=== PATIENT | female | born 1935 | race Caucasian/White ===

== ENCOUNTER 2022-11-11 11:09 | Outpatient (REF) | payer MEDICARE, SELFPAY ==
[2022-11-11 12:48] LABS: Alanine Aminotransferase 19 U/L (0-31); Albumin Level 4.2 g/dL (3.5-5.0); Alkaline Phosphatase 76 U/L (39-117); Aspartate Amino Transferase 20 U/L (5-31); Bilirubin Direct < 0.2 mg/dL (0.0-0.5); Bilirubin Total 0.4 mg/dL (0.0-1.0); Cholesterol 151 mg/dL; Glucose Fasting 188 mg/dL (60-99); HDL Cholesterol 35 mg/dL; LDL Cholesterol Calculated 80 mg/dl; Triglycerides 183 mg/dL
[2022-11-11 13:59] LABS: Estimated Average Glucose 200 mg/dL; Hemoglobin A1c % 8.6 %
[2022-11-11 14:37] LABS: Reflex LDLD? No
== END 2022-11-11 11:10 | disposition home or self-care (01) ==
LOC: HO.LNP 11:09
PROVIDERS: Visit Provider Internal Medicine
DX: E11.9 Type 2 diabetes mellitus without complications (principal); E78.00 Pure hypercholesterolemia, unspecified
CPT/HCPCS: 80061; 80076; 82947; 83036

== ENCOUNTER → 2023-01-16 15:30 | Outpatient (BNVA) | payer MEDICARE, SELFPAY | PROVIDERS: PCP Internal Medicine; Visit Provider Hospitalist | DX: R06.00 Dyspnea, unspecified (principal); J44.9 Chronic obstructive pulmonary disease, unspecified; Z79.899 Other long term (current) drug therapy | CPT/HCPCS: 99212 ==

== ENCOUNTER 2023-07-17 15:33 | Outpatient (AMB) | payer MEDICARE, SELFPAY ==
--- NOTE | 2023-07-17 15:34 | MHC.OFFVIS ---
Intake Vital Signs 07/17/23 15:36 Weight 162 lb 0.636 oz BP 130/66 Blood Pressure Location Rt brachial Position Sitting Pulse 83 Pulse Source Pulse Oximeter Pulse Oximetry (%) 98 Oxygen Delivery Method Room Air Intake Visit Reasons: COPD Allergies codeine Allergy (Mild, Verified 07/17/23 15:40) NAUSEA & VOMITING, vomiting morphine Allergy (Mild, Verified 07/17/23 15:40) NAUSEA & VOMITING, vomiting aspirin [ASPIRIN] Allergy (Unknown, Verified 07/17/23 15:40) INCREASED BLEEDING fluticasone [Advair Diskus] Allergy (Unknown, Verified 07/17/23 15:40) hoarsness indomethacin Allergy (Unknown, Verified 07/17/23 15:40) Mouth sores/diarrhea salmeterol [Advair Diskus] Allergy (Unknown, Verified 07/17/23 15:40) hoarsness Codeine Phosphate Allergy (Unknown, Uncoded 07/17/23 15:40) vomiting Medication List - Last Reconciled 07/17/23 by Cami Cody LPN albuterol sulfate 90 mcg/actuation 2 puffs inhalation Q6H PRN budesonide 0.5 mg (2 mL) inhalation DAILY citalopram 20 mg PO DAILY doxycycline hyclate 100 mg PO BID 10 days fluticasone propionate 50 mcg/actuation 2 sprays intranasal DAILY glipizide 5 mg PO BID ipratropium-albuterol 0.5 mg-3 mg(2.5 mg base)/3 mL 3 mL inhalation QID 30 days lisinopril-hydrochlorothiazide 10-12.5 mg 1 tab PO DAILY meclizine 25 mg PO DAILY montelukast 10 mg PO DAILY omeprazole 0 mg PO prednisone PO daily; Take 2 tabs daily x 5 days, then 1 tablet daily x 5 days 10 days primidone 50 mg PO BID simvastatin 20 mg PO BEDTIME HPI HPI Comments History of Present Illness Details The patient is an 87-year-old woman known history of asthma. Her asthma symptoms have been worsening now for the last several weeks. She has had worsening shortness of breath and wheezing. Moderate severity. She has been using the nebulizer several times a day with partial resolution of the symptoms. She has been coughing up some phlegm which is been yellowish in color. The patient has some wheezing on examination. I did teach her how to use his bili certain the office that she can use it with her Symbicort and will also optimize her respiratory regimen at this time. 04/13/2021 The patient is here for pulmonary follow-up visit. Overall she is doing a lot better. Her wheezing is significantly improved. Her mucous burden also improved. She has been complaining of dyspnea on exertion. She has been using the budesonide once a day. She did try using the albuterol but she could not tolerated. She try taking a small dose by taking the only a few minutes of the albuterol via nebulizer and was still give her significant tremulousness and palpitations. Therefore she has not been able to use it. Does have xopenex as needed. On exam she does have some wheezing. We need to optimize her respiratory regimen at this time. 12/25/2021 the patient is here for a pulmonary follow-up visit. Overall the patient is doing relatively well. Although she has been noticing increasing shortness of breath and wheezing. She responded very well to the Anoro. However, the Anoro became very expensive. At this point she cannot afford the co-pay. She has been using the budesonide and she does have a rescue inhaler, ProAir RespiClick. She has been using that a few times a day with partial improvement of her symptoms. The patient does have a nebulizer at home. The patient is agreeable to continuing the budesonide and also adding DuoNeb twice a day to take the place of the Anoro. She can also continue to use the albuterol RespiClick as needed in between. I am hopeful that going on the nebulizer twice a day she will reach a good stable respiratory status. 06/13/2022 the patient is here for pulmonary follow-up visit. The patient has been having worsening chest tightness and shortness of breath. She has been coughing more. Her cough tends to be productive at times. She has been using her nebulizer twice a day in addition to her rescue inhaler in between. But she has not felt good. Denies any fevers or chills. Denies any chest pain. Although she does complaint of the chest tightness. In the office she was found to have significant wheezing. Therefore she received 2 Xopenex treatments with interval improvement of her broncho spasms. The patient is agreeable at this time to start prednisone because she has significant wheezing and also will start an antibiotic. Patient also could use her nebulized therapy if more frequent although she needs to be careful not to over uses specially because of cardiac irritability with the beta agonist effect. She did well after the to Xopenex treatments although then she felt some dizziness and vertigo. Therefore she said down in the office for a while but 10 minutes her pulse ox and heart rate were stable. She was able to then get up and use a walker and go home with the help of her daughter. 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 01/06/2023 the patient is here for pulmonary follow-up visit. The patient overall is feeling better. Her respiratory status is back to baseline. She is still having shortness of breath with activity. But usually improves when she sits down. The patient does not use oxygen. Actually her oxygenation is 100% with activity as removed from the the exam room to the credit front office developer. She did have blood work recently although she did have a hemoglobin checked. Appears that her last hemoglobin is 10.5. Therefore she appears to have just a pale conjunctiva in with shortness of breath will go ahead and have her repeat the CBC. In the meantime she is using her respiratory therapy as prescribed with good effect. She has not required any additional prednisone antibiotics since back in the summer of 2021 which is reassuring. No other complaints at this time. If the patient has a abnormal CBC I will make sure to let her know and also report to her primary care. 07/17/2023 the patient is here for a pulmonary follow-up visit. Overall the patient is feeling better now. She did go to the hospital urgently for acute respiratory distress. Apparently was over the summer. She had not been using her nebulizers often. It was during the heat and humidity and also [place] The patient was having some issues just prior. Subsequently she could not breathe. She was taken by ambulance to the hospital where she was kept overnight. She was placed on prednisone and given respiratory therapy. This was at [facility]. I will request a CT scan that she had there. I do not have it right now. Per report of the patient and her daughter she was told that the CT scan was okay. She was discharged now she is back at her baseline. Now she is using her nebulizer therapy as prescribed. Based on the fact that the patient is at baseline we can hold off on additional testing. If she has any more difficulty breathing will have to assess for different triggers including allergies. Therefore will continue with current respiratory therapy. Patient will follow-up in 6 months. [facility] Medical History (Updated 06/13/22 @ 23:23 by Mark Ornelas MD) Asthma-COPD overlap syndrome Asthma Dyspnea Social History (Updated 04/13/21 @ 15:47 by Shantell Cordero Corwin) Patient Tobacco Use Status: Never used Tobacco Review of Systems Const Reports fatigue, Denies fever(s) and Denies night sweats ENT Denies change in voice, Denies lip swelling, Denies mouth pain, Reports nasal congestion, Reports nasal discharge and Denies tongue swelling Card Denies chest pain and Reports dyspnea on exertion Resp Denies change in phlegm color, Denies chest congestion, Reports cough, Reports dyspnea on exertion and Reports wheezing GI Denies abdominal pain Musc Denies no additional complaints Neuro Denies Neuro-related abnormal movements Psych Denies no additional complaints Endo Reports fatigue Walter/Lymph Denies easy bleeding and Denies lymphadenopathy Aller/Immun Denies lip swelling, Denies tongue swelling and Reports wheezing Physical Exam Vital Signs: Last Vital Signs Pulse 83 07/17/23 15:36 BP 130/66 07/17/23 15:36 Pulse Ox 98 07/17/23 15:36 Oxygen Delivery Method Room Air 07/17/23 15:36 Const General: alert Eyes Conjunctivae: conjunctival abnormal bilateral pallor Neck Neck: Yes normal visual inspection, Yes full ROM and Yes no lymphadenopathy Chest Chest palpation & inspection: normal inspection of the chest Resp Auscultation: no rhonchi, no wheezes and diminished lung sounds Cardio Rate: regular rate Rhythm: regular rhythm Heart sounds: S1 normal heart sound present and S2 normal heart sound present GI Palpation (GI): Soft to palpation and nontender Auscultation: normal bowel sounds Skin General skin exam: rashes and/or lesions noted Assessment & Plan Assessment & Plan (1) Dyspnea: Code(s): R06.00 - Dyspnea, unspecified Qualifiers: Dyspnea type: dyspnea on exertion Qualified Code(s): R06.00 - Dyspnea, unspecified (2) Asthma-COPD overlap syndrome: Code(s): J44.9 - Chronic obstructive pulmonary disease, unspecified Plan Continue BUdesonide nebs continue Duoneb BID CASI as needed need to review CT chest F/U 6 months Medications: Refilled ipratropium-albuterol 0.5 mg-3 mg(2.5 mg base)/3 mL 3 mL inhalation QID 30 days 360 mL 11RF J44.9 - Chronic obstructive pulmonary disease, unspecified Coding Level of Care Code Est Pt Level 4 (34665) Diagnoses Dyspnea on exertion R06.00 Dyspnea type: dyspnea on exertion Asthma-COPD overlap syndrome J44.9 Time Spent (min) 17
[2023-07-17 15:36] VITALS: BP 130/66; PULSE 83; O2SAT 98
== END 2023-07-17 16:00 | disposition home or self-care (01) ==
PROVIDERS: PCP Internal Medicine; Visit Provider Hospitalist
DX: R06.00 Dyspnea, unspecified (principal); J44.9 Chronic obstructive pulmonary disease, unspecified
CPT/HCPCS: 99214

== ENCOUNTER → 2023-07-17 15:33 | Outpatient (BNVA) | payer MEDICARE, SELFPAY | PROVIDERS: Visit Provider Hospitalist | DX: J44.9 Chronic obstructive pulmonary disease, unspecified (principal); R06.00 Dyspnea, unspecified; Z79.899 Other long term (current) drug therapy | CPT/HCPCS: 99212 ==

== ENCOUNTER 2023-11-11 11:15 | Outpatient (REF) | payer MEDICARE, SELFPAY ==
[2023-11-11 11:19] LABS: MANUAL DIFF FLAG NO
[2023-11-11 12:05] LABS: Appearance Urine Clear; Color Urine Yellow; Glucose Urine UA Negative (Negative); Leukocyte Esterase Urine Small (1+) (Negative); Nitrite Urine Negative (Negative); UMIC TRIGGER UACC YES; Urine Blood Negative (Negative); Urine Ketones Negative (Negative); Urine Protein Negative (Neg-Trace)
[2023-11-11 12:06] LABS: Basophils Percent Auto 0.6 % (0-2); Eosinophils Absolute Auto 0.1 X10*3/uL (0.0-0.4); Eosinophils Percent Auto 2.6 % (0-4); Hematocrit 36.5 % (37.0-47.0); Hemoglobin 11.5 g/dl (12.0-16.0); Imm Gran Abs Auto 0.03 X10*3/uL (0.00-0.03); Imm Gran Pct Auto 0.6 % (0.0-0.4); Lymphocytes Absolute Auto 0.9 X10*3/uL (1.2-4.9); Lymphocytes Percent Auto 18.1 % (20-40); Mean Corpuscular HGB Conc 31.5 g/dl (31.0-35.0); Mean Corpuscular Hemoglobin 27.4 pg (27.0-33.0); Mean Corpuscular Volume 87.1 fL (80.0-98.0); Mean Platelet Volume 12.2 fL (9.4-12.3); Monocytes Absolute Auto 0.6 X10*3/uL (0.1-1.2); Monocytes Percent Auto 10.8 % (2-11); Neutrophils Absolute Auto 3.4 x10*3/uL (2.0-8.3); Neutrophils Percent Auto 67.3 % (45-73); Platelet Count 226 X10*3/uL (160-400); Red Blood Count 4.19 X10*6/uL (4.20-5.50); Red Cell Distribution Width 14.6 % (11.0-16.0); White Blood Count 5.1 X10*3/uL (4.8-10.8)
[2023-11-11 12:09] LABS: Estimated Average Glucose 180 mg/dL; Hemoglobin A1C 182.4898 umol/L; Hemoglobin A1c % 7.9 % (<6.0)
[2023-11-11 12:30] LABS: Bacteria Urine None Seen (None Seen); Hyaline Casts Urine 0-2 /LPF (0-2); RBC Urine 0-2 /HPF (0-2); UACC Culture Trigger YES; WBC Urine 0-5 /HPF (0-5)
[2023-11-11 12:53] LABS: Alanine Aminotransferase 20 U/L (0-31); Albumin Level 4.2 g/dL (3.5-5.0); Alkaline Phosphatase 58 U/L (39-117); Anion Gap 15 (12-20); Aspartate Amino Transferase 21 U/L (5-31); Bilirubin Total 0.3 mg/dL (0.0-1.0); Blood Urea Nitrogen 30 mg/dL (9-16); Carbon Dioxide 25 mmol/L (22-29); Chloride 103 mmol/L (96-108); Cholesterol 168 mg/dL (<200); Estimated Glomerular Filt Rate 45; Glucose Fasting 190 mg/dL (60-99); HDL Cholesterol 41 mg/dL (>40); Iron 63 mcg/dL (30-160); LDL Cholesterol Calculated 87 mg/dL (<100); Percent Iron Saturation 25 % (15-50); Sodium 138 mmol/L (135-145); Total Iron Binding Capacity 253 mcg/dL (228-428); Total Protein 7.4 g/dL (6.5-8.0); Triglycerides 201 mg/dL (<150); Unsaturated Iron Binding 190 ug/dL
[2023-11-11 13:19] LABS: Creatinine Urine 94.64 mg/dL; Microalbum/Creatinine Ratio Ur 13.7 ug/mg cr (<30)
== END 2023-11-11 11:16 | disposition home or self-care (01) ==
LOC: HO.LNP 11:15
PROVIDERS: Visit Provider Internal Medicine
DX: E11.9 Type 2 diabetes mellitus without complications (principal); D50.8 Other iron deficiency anemias; E78.00 Pure hypercholesterolemia, unspecified; I10 Essential (primary) hypertension
CPT/HCPCS: 80053; 80061; 81001; 82043; 82570; 83036; 83540; 85025; 87086

== ENCOUNTER 2024-03-30 10:04 | Outpatient (AMB) | payer MEDICARE, SELFPAY ==
[2024-03-30 10:11] VITALS: PULSE 71; O2SAT 98; BMI 26.4
--- NOTE | 2024-03-30 10:11 | A.OFFVIS_ITS ---
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 Allergies codeine Allergy (Mild, Verified 03/30/24 10:13) NAUSEA & VOMITING, vomiting morphine Allergy (Mild, Verified 03/30/24 10:13) NAUSEA & VOMITING, vomiting aspirin [ASPIRIN] Allergy (Unknown, Verified 03/30/24 10:13) INCREASED BLEEDING fluticasone [Advair Diskus] Allergy (Unknown, Verified 03/30/24 10:13) hoarsness indomethacin Allergy (Unknown, Verified 03/30/24 10:13) Mouth sores/diarrhea salmeterol [Advair Diskus] Allergy (Unknown, Verified 03/30/24 10:13) hoarsness Codeine Phosphate Allergy (Unknown, Uncoded 03/30/24 10:13) vomiting HPI Comments Details: The patient is an 88-year-old woman known history of asthma. Her asthma symptoms have been worsening now for the last several weeks. She has had worsening shortness of breath and wheezing. Moderate severity. She has been using the nebulizer several times a day with partial resolution of the symptoms. She has been coughing up some phlegm which is been yellowish in color. The patient has some wheezing on examination. I did teach her how to use his bili certain the office that she can use it with her Symbicort and will also optimize her respiratory regimen at this time. 01/06/2023 the patient is here for pulmonary follow-up visit. The patient overall is feeling better. Her respiratory status is back to baseline. She is still having shortness of breath with activity. But usually improves when she sits down. The patient does not use oxygen. Actually her oxygenation is 100% with activity as removed from the the exam room to the lockstitch front maker. She did have blood work recently although she did have a hemoglobin checked. Appears that her last hemoglobin is 10.5. Therefore she appears to have just a pale conjunctiva in with shortness of breath will go ahead and have her repeat the CBC. In the meantime she is using her respiratory therapy as prescribed with good effect. She has not required any additional prednisone antibiotics since back in the summer of 2021 which is reassuring. No other complaints at this time. If the patient has a abnormal CBC I will make sure to let her know and also report to her primary care. 07/17/2023 the patient is here for a pulmonary follow-up visit. Overall the patient is feeling better now. She did go to the hospital urgently for acute respiratory distress. Apparently was over the summer. She had not been using her nebulizers often. It was during the heat and humidity and also the [place] The patient was having some issues just prior. Subsequently she could not breathe. She was taken by ambulance to the hospital where she was kept overnight. She was placed on prednisone and given respiratory therapy. This was at [facility]. I will request a CT scan that she had there. I do not have it right now. Per report of the patient and her daughter she was told that the CT scan was okay. She was discharged now she is back at her baseline. Now she is using her nebulizer therapy as prescribed. Based on the fact that the patient is at baseline we can hold off on additional testing. If she has any more difficulty breathing will have to assess for different triggers including allergies. Therefore will continue with current respiratory therapy. Patient will follow-up in 6 months. 03/30/2024 the patient is here for pulmonary follow-up visit. The patient overall is doing very well. She continues using nebulized therapy as prescribed. Denies any significant respiratory complaints. Denies any need for prednisone. Denies any significant coughing. The patient did have an issue with water leakage in mold exposure from the water leakage from the windows. She is since moved to a different apartment and she does not have that issue any longer. I hope that that is also helping her respiratory symptoms. The patient did have a CT scan of the chest sometime ago at [facility]. We did request a but it never arrived. Will see about trying to get it again. In the meantime she does not need any additional imaging studies at this time. The patient follow-up in a year's time. If she has any concerning issues or new issues she can always call for an earlier assessment. [facility] Medical History (Updated 06/13/22 @ 23:23 by Mark Ornelas MD) Asthma-COPD overlap syndrome Asthma Dyspnea Social History (Updated 04/13/21 @ 15:47 by DELROY Narvaez) Patient Tobacco Use Status: Never used Tobacco Review of Systems Const Denies fever(s) and Denies night sweats ENT Denies change in voice, Denies lip swelling, Denies mouth pain, Reports nasal congestion, Reports nasal discharge and Denies tongue swelling Card Denies chest pain and Reports dyspnea on exertion Resp Denies change in phlegm color, Denies chest congestion, Reports cough, Reports dyspnea on exertion and Denies wheezing GI Denies abdominal pain Musc Denies no additional complaints Neuro Denies Neuro-related abnormal movements Psych Denies no additional complaints Walter/Lymph Denies easy bleeding and Denies lymphadenopathy Aller/Immun Denies lip swelling, Denies tongue swelling and Denies wheezing Physical Exam Vital Signs: Last Vital Signs Pulse 71 03/30/24 10:11 Pulse Ox 98 03/30/24 10:11 Oxygen Delivery Method Room Air 03/30/24 10:11 BMI result Body Mass Index 26.4 Const General: alert Eyes Conjunctivae: conjunctival abnormal bilateral pallor Neck Neck: Yes normal visual inspection, Yes full ROM and Yes no lymphadenopathy Chest Chest palpation & inspection: normal inspection of the chest Resp Auscultation: no rhonchi, no wheezes and diminished lung sounds Cardio Rate: regular rate Rhythm: regular rhythm Heart sounds: S1 normal heart sound present and S2 normal heart sound present GI Palpation (GI): Soft to palpation and nontender Auscultation: normal bowel sounds Skin General skin exam: rashes and/or lesions noted Assessment & Plan Assessment & Plan (1) Asthma-COPD overlap syndrome: Code(s): J44.9 - Chronic obstructive pulmonary disease, unspecified Category: Medical (2) Dyspnea: Code(s): R06.00 - Dyspnea, unspecified Category: Medical Qualifiers: Dyspnea type: dyspnea on exertion Qualified Code(s): R06.00 - Dyspnea, unspecified Plan Continue BUdesonide nebs continue Duoneb BID CASI as needed need to review CT chest F/U 12 months Coding Level of Care Code Est Pt Level 4 (85200) Diagnoses Asthma-COPD overlap syndrome J44.9 Dyspnea on exertion R06.00 Dyspnea type: dyspnea on exertion Time Spent (min) 16
== END 2024-03-30 10:24 | disposition home or self-care (01) ==
PROVIDERS: PCP Internal Medicine; Visit Provider Hospitalist
DX: J44.9 Chronic obstructive pulmonary disease, unspecified (principal); R06.00 Dyspnea, unspecified
CPT/HCPCS: 99214

== ENCOUNTER → 2024-03-30 10:04 | Outpatient (BNVA) | payer MEDICARE, SELFPAY | PROVIDERS: PCP Internal Medicine; Visit Provider Hospitalist | DX: J44.9 Chronic obstructive pulmonary disease, unspecified (principal); R06.00 Dyspnea, unspecified | CPT/HCPCS: 99212 ==